=== PATIENT | male | born 1990 | race African-American/Black ===

== ENCOUNTER 2024-10-06 08:04 | Emergency (ER) | payer SELFPAY ==
[~2024-10-06] VITALS: Ht 177.8 cm; Wt 65.8 kg
[2024-10-06 08:10] VITALS: PULSE 54; RESP 16; TEMP 97.3
[2024-10-06] MEDS ORDERED: CYCLOBENZAPRINE5 MG PO (09:28)
[2024-10-06 09:39] VITALS: BP 120/74; PULSE 48; RESP 16; TEMP 97.4; O2SAT 97
== END 2024-10-06 09:38 | disposition home or self-care (01) ==
LOC: EDBD 08:04 → FSED 08:09
DX: R51.9 Headache, unspecified (principal); M54.2 Cervicalgia; M62.838 Other muscle spasm; R20.0 Anesthesia of skin
CPT/HCPCS: 70450; 72125; 99284